=== PATIENT | female | born 1960 | race Caucasian/White ===

== ENCOUNTER → 2016-09-20 | Outpatient (CLI) | payer OTHER ==
[~2016-09-20] MED LIST: ACCUNEB SO1.25 MG/1; ADVAIR 100-501 EACH INH; AMLODIPINE BESYL5 M1 PO; ASA81BEC PO; COLACE100 MG PO; FLEXERIL PO; IBUPROFEN 800800 M1 PO; LEVAQUIN 500 M500 M4 PO; LEVOTHYROXIN0.125 M1 PO; LEVOTHYROXIN0.137 M1 PO; LISINOPRIL20 MG PO; LISINOPRIL40 MG PO; METOLAZONE 2.52.5 MG PO; MUCINEX TA600 MG/TA1 PO; TYLENOL325 MG PO; ZPAK PO
== END ==
LOC: RAD 00:55
DX: R06.02 Shortness of breath (principal)